=== PATIENT | female | born 1975 | race Caucasian/White ===

== ENCOUNTER 2019-10-06 16:54 | Emergency (ER) | payer OTHER, SELFPAY ==
[2019-10-06 17:04] VITALS: BP 151/93; PULSE 96; RESP 16; TEMP 37.3; O2SAT 99
--- NOTE | 2019-10-06 17:11 | ED.URI ---
HPI - URI/Sore Throat General Chief Complaint: Upper Respiratory Infection Stated Complaint: cold / flu symptoms Time Seen by Provider: 10/06/19 17:11 Source: patient and family History of Present Illness HPI Narrative: Patient presents with nasal congestion dry nonproductive cough and laryngitis that started 2 days ago. Patient has tried multiple [id number] medications with minimal relief in her symptoms. No shortness of breath no chest pain. Normally healthy individual. MD elicited complaint: cough, rhinorrhea and nasal congestion Related Data Home Medications Medication Instructions Recorded Confirmed cyclobenzaprine 20 mg PO HS 10/06/19 10/06/19 leflunomide 20 mg PO DAILY 10/06/19 10/06/19 secukinumab [Cosentyx] 150 mg SUBCUT ONCE 10/06/19 10/06/19 zonisamide 100 mg PO BID 10/06/19 10/06/19 Allergies Allergy/AdvReac Type Severity Reaction Status Date / Time infliximab [From Remicade] Allergy Intermediate Unknown Verified 10/06/19 17:28 codeine Allergy Unknown Difficulty Verified 10/06/19 17:26 Breathing levofloxacin Allergy Unknown Itching Verified 10/06/19 17:26 propoxyphene Allergy Unknown Unknown Verified 10/06/19 17:26 sulfasalazine Allergy Unknown Abdominal Verified 10/06/19 17:26 Pain tramadol Allergy Unknown Shakiness Verified 10/06/19 17:26 Review of Systems Review of Systems: Narrative: CONSTITUTIONAL: Denies fever, chills, or sweats. EYES: Denies visual changes, redness, or discharge. ENT: Denies rhinorrhea, congestion, sore throat, or otalgia. CARDIOVASCULAR: Denies chest pain, palpitations, or edema. RESPIRATORY: Denies cough or dyspnea. GASTROINTESTINAL: Denies abdominal pain, nausea, vomiting, or diarrhea. GENITOURINARY: Denies dysuria or hematuria. SKIN: Denies rash or itching. MUSCULOSKELETAL: Denies back pain, joint pain, or myalgia. NEUROLOGIC: Denies headache, numbness, or weakness. PSYCHIATRIC: Denies anxiety or depression. PMFSH Comments At time of signature, agree with nursing past medical, surgical, social and family history. There is no relevant family history pertinent to the presenting complaint Exam Narrative: Exam Narrative: The patient is a well-developed, well-nourished in no acute distress. SKIN: Skin is warm and dry without erythema, swelling or exudate. There is good turgor. No tenting. HEAD: Atraumatic. Normocephalic. No temporal or scalp tenderness. EYES: Moist and bright. Sclera and conjunctivae normal. No discharge. PERRLA. Extraocular motions intact. Gross visual acuity intact. EARS: Pinna is normal shape and contour. Clear external auditory canals. TM pearly bailey with good cone of light, no erythema or suppuration. Bilateral cerumen noted no gross hearing deficit. NOSE: pink, moist mucosa with good air movement. Clear rhinorrhea without nasal flaring. Septum midline. Mouth: moist mucous membranes. THROAT; mild erythema noted to posterior oropharynx with moderate postnasal drainage. Without exudate or ulceration.. Uvula midline. Normal movement of soft palate. NECK: Supple and nontender with full range of motion without discomfort. No meningeal signs. LUNGS: Equal and bilateral breath sounds without wheezes, rales or rhonchi. CHEST: The chest wall is without retractions or use of accessory muscles. HEART: Has a regular rate and rhythm without murmur, gallops, click or rub. ABDOMEN: Soft, nontender with positive active bowel sounds. No rebound tenderness. EXTREMITIES: Without cyanosis, clubbing or edema. Equal 2+ distal pulses and 2 second capillary refill noted. NEUROLOGIC: alert, active, . The patient moves all extremities with normal muscle strength. Normal muscle tone is noted. Normal coordination is noted. NO focal neurological findings noted. Course Vital Signs Vital signs: Vital Signs Temperature 37.3 C 10/06/19 17:04 Pulse Rate 96 10/06/19 17:04 Respiratory Rate 16 10/06/19 17:04 Blood Pressure 151/93 H 10/06/19 17:04 Pulse Oximetry 99
== END 2019-10-06 17:32 | disposition home or self-care (01) ==
PROVIDERS: Emergency Provider Nurse Practitioner Family; PCP Family Medicine
DX: B34.9 Viral infection, unspecified (principal); R09.82 Postnasal drip; J06.9 Acute upper respiratory infection, unspecified
CPT/HCPCS: 99203; G0463

== ENCOUNTER 2025-01-08 18:47 | Emergency (ER) | payer OTHER, SELFPAY ==
--- OUTSIDE RECORDS SUMMARY | 2025-01-08 18:49 | XMS_ITS | Clinical Summary ---
Author Organization [facility] Address [address] [place] [id number] Care Team Providers Care Insurance Broker Name Role Phone Unavailable Primary Care Provider Unavailabl e Social History Tobacco Use Types Packs/Day Years Used Date Smoking Tobacco: Never Assessed Comments Unknown Sex and Gender Information Value Date Recorded Sex Assigned at Not on file Legal Sex Female 8:34 PM CDT Gender Identity Not on file Sexual Orientation Not on file Plan of Treatment Health Maintenance Due Date Last Done Comments Cervical Cancer Screening Pa p Smear (Age 30 to 64) Every 3 Years 1973 Colorectal Cancer Screening Colonoscopy (10 Years) 1973 Annual Physical 1976 Hepatitis C 1991 DTaP, Tdap and Td Vaccines ( 1 - Tdap) 1992 Hepatitis B Vaccines (1 of 3 - 19+ 3-dose series) 1992 Cervical Cancer Screening Pa p with HPV Testing (Age 30 to 64) Every 5 Years 2003 Cervical Cancer Screening with HPV 2003 Mammogram Screening 2013 Pneumococcal Vaccine: 50+ Ye ars (1 of 1 - PCV) 2023 Zoster Vaccines (1 of 2) 2023 COVID-19 Vaccine ( - 2023-2 5 season) 2024 Meningococcal B Vaccine Aged Out No l onger eligible based on patient's age to complete this topic Meningococcal Vaccine Aged Out No angel sean eligible based on patient's age to complete this topic RSV Immunizations Under 20 Months Aged Out No longer eligible based on patient's age to complete this topic
--- OUTSIDE RECORDS SUMMARY | 2025-01-08 18:49 | XMS_ITS | Clinical Summary ---
Author Organization [facility] Address [address] [place] [address] Care Team Providers Care Director Of It Operations Name Role Phone Kwabena Nascimento MD Primary Care Provider [phone] Source Comments [facility],non-owned Affiliates and Associated Physician Practices is amultiple site organization consisting of ambulatory clinics and hospital sitesin [place], [place], [place] and [place]. This disclosure is being madepursuant to the Care Everywhere program and may not contain all information available regarding this patient. Last updated 18.[facility] Allergies Active Allergy Reactions Criticality Noted Date Comments Codeine Shortness of Breath High 10/27/2016 Levofloxacin Itching Low 10/27/2016 Propoxyphene Shortness of Breath High 10/27/2016 Sulfasalazine Shortness of Breath High 10/27/2016 Tramadol Other Low 10/27/2016 Pt states she gets tremors Medications * Be aware that medications may not be up to date on this document. Alwaysverify current medications with the patient. senna-docusate (SENOKOT-S) 8.6-50 MG tablet Take 1 tablet by mouth QDAY PRN (Constipati on). 30 tablet 0 10/29/2016 Active polyethylene glycol 3350 (MIRALAX) packet Take 17 g by mouth QDAY PRN (Constipati on). 30 packet 0 10/29/2016 Active zonisamide (ZONEGRAN) 100 MG capsule Take 100 mg by mouth DAILY. 10/27/2016 Active Biotin 1000 MCG Take by mouth. 10/27/2016 Active cyclobenzaprine (FLEXERIL) 5 MG tablet Take 10 mg by mouth 3X/day PRN. 10/27/2016 Active leflunomide (ARAVA) 20 MG tablet Take 20 mg by mouth DAILY. 10/27/2016 Active Apremilast (OTEZLA) 30 MG Take by mouth. 10/27/2016 Active Active Problems Problem Noted Date Diagnosed Date Calculus of kidney 10/29/2016 Abdominal pain 10/28/2016 Nausea 10/28/2016 Social History Tobacco Use Types Packs/Day Years Used Date Smoking Tobacco: Never Alcohol Use Standard Drinks/Week Comments No 0 (1 standard drink = 0.6 oz pur e alcohol) Comments Unknown Sex and Gender Information Value Date Recorded Sex Assigned at Not on file Legal Sex Female 5:40 PM [employer] Gender Identity Not on file Sexual Orientation Not on file Last Filed Vital Signs Vital Sign Reading Time Taken Comments Blood Pressure 138/90 12/10/2016 1:37 PM CDT Pulse 117 12/10/2016 1:37 PM CDT Temperature 36.8 C (98.2 F) 12/10/2016 1:37 PM CDT Respiratory Rate 18 10/29/2016 8:27 AM [employer]ESS [employer] Oxygen Saturation 100% 12/10/2016 1:37 PM CDT Inhaled Oxygen Concentration - - Weight 74.8 kg (165 lb) 12/10/2016 1:37 PM CDT Height 167.6 cm (5' 6 ) 12/10/2016 1:37 PM CDT Body Mass Index 26.63 12/10/2016 1:37 PM CDT Plan of Treatment Health Maintenance Due Date Last Done Comments COLOGUARD (AGES 45-75) - COL ON CA SCREENING 1973 COLON MONITORING 1973 COLONOSCOPY - COLON CA SCREENING 1973 CT COLONOGRAPHY - COLON CA SCREENING 1973 Colorectal Cancer Screening 1973 FIT - COLON CA SCREENING 1973 FLEX SIG - COLON CA SCREENING 1973 LIPID TESTING 1973 MAMMOGRAM 1973 HIV SCREENING 1988 HEPATITIS C SCREENING 03/16/1991 DTAP/TDAP/TD VACCINES (1 - Tdap) 1992 HEPATITIS B VACCINE (1 of 3 - 19+ 3-dose series) 1992 PNEUMOCOCCAL VACCINE 50+ (1 of 1 - PCV) 2023 ZOSTER VACCINE (1 of 2) 2023 COVID-19 VACCINE (1 - 2023-2 5 season) 2024 DEPRESSION SCREENING 08/30/2024 INFLUENZA VACCINE (Season Ended) 2025 HIB VACCINE Aged Out No longer eligi ble based on patient's age to complete this topic HPV VACCINE Aged Out No longer eligi ble based on patient's age to complete this topic MENINGOCOCCAL (Group B) VACC INE SHARED DECISION-MAKING Aged Out No longer eligibl e based on patient's age to complete this topic MENINGOCOCCAL GROUPS A/C/Y/W VACCINE Aged Out No longer eligible b ased on patient's age to complete this topic Care Teams Director Of It Operations Relationship Specialty Start Date End Date Kwabena Nascimento MD [address] [place] [address] PCP - General 10/27/16
[2025-01-08 18:54] VITALS: BP 143/85; PULSE 93; RESP 20; TEMP 36.8; O2SAT 100
--- NOTE | 2025-01-08 19:02 | ED_ITS ---
HPI - Skin/Abscess/Foreign Bdy General Chief complaint: Skin/Abscess/Foreign Body Stated complaint: poss allergic reaction Time Seen by Provider: 01/08/25 19:02 Source: patient, RN notes reviewed and old records reviewed Mode of arrival: ambulatory Limitations: no limitations History of Present Illness HPI narrative: 49 year old female who presents to [facility] care with complaints of working in the yard on Wednesday and having some reaction from bug bites and is itchy all over. Patient has red raised firm bites to back of both ears and on lobes. to left side of neck and on posterior neck and on right leg. Patient reports that she has been taking Benadryl for her symptoms without relief. MD complaint: rash and insect bite/sting Onset (ago): day(s) (day 3) Severity: moderate Quality: pruritic Treatments prior to arrival: Benadryl Related Data Home Medications ?Medication ?Instructions ?Recorded ?Confirmed ?Last Taken ?Type cyclobenzaprine 10 mg tablet 20 mg PO HS 10/06/19 10/06/19 Unknown History zonisamide 100 mg capsule 100 mg PO BID 10/06/19 10/06/19 Unknown History clobetasol topical 01/08/25 Unknown History Allergies Allergy/AdvReac Type Severity Reaction Status Date / Time infliximab (From Remicade) Allergy Intermediate Unknown Verified 01/08/25 19:01 codeine Allergy Unknown Difficulty Verified 01/08/25 19:01 Breathing levofloxacin Allergy Unknown Itching Verified 01/08/25 19:01 propoxyphene Allergy Unknown Unknown Verified 01/08/25 19:01 sulfasalazine Allergy Unknown Abdominal Verified 01/08/25 19:01 Pain tramadol Allergy Unknown Shakiness Verified 01/08/25 19:01 Review of Systems Review of Systems: CONSTITUTIONAL: Denies fever, chills, or sweats. CARDIOVASCULAR: Denies chest pain, palpitations, or edema. RESPIRATORY: Denies cough or dyspnea. SKIN: Reports areas of redness on skin from bug bites since working in yard on Wednesday Patient has red firm raised bites to bilateral ears and on ear lobes, left neck and back of neck and on righ lg MUSCULOSKELETAL: Denies joint pain or myalgia. NEUROLOGIC: Denies headache, numbness, or weakness. All systems reviewed & are unremarkable except as noted in HPI and below [facility] Past Medical History Medical History (Updated 01/09/25 @ 17:11 by Jami Neal NP) Psoriasis Osteoarthritis Psoriatic arthritis Hemiplegic migraine Cluster headaches Surgical History Surgical History (Updated 01/09/25 @ 17:03 by Jami Neal NP) History of endometrial ablation H/O umbilical hernia repair S/P medial meniscectomy of right knee History of tympanoplasty S/P arthroscopic partial medial meniscectomy of left knee Social History Social History (Updated 01/08/25 @ 19:16 by Jami Neal NP) Smoking status: Former smoker Alcohol intake: current Alcohol use details: rare Substance use type: does not use Gender identity (if verbalized by the patient): Female Comments At time of signature, agree with nursing past medical, surgical, social and family history. There is no relevant family history pertinent to the presenting complaint Exam Narrative: GENERAL: Well-appearing, well-nourished, and in no acute distress. HEAD: Normocephalic, atraumatic. EYES: PERRLA, conjunctivae clear, and EOMI. ENT: Mucous membranes moist. Oropharynx without edema, erythema or lesions. NECK: Supple. No lymphadenopathy red raised firm bug bite left side of neck and on posterior neck CHEST: Clear to auscultation. No respiratory distress. SAO2 100% on room air HEART: Regular rate and rhythm. raised firm bug bite to bilateral ars and on ear lobes and on right leg no pustular formation is itchy SKIN: Warm, dry.? NEURO:? Alert and oriented x3. PSYCH: Normal mood and affect Course Course Emergency Course: Patient is aware of diagnosis, understands and agrees to treatment plan.? Anticipatory guidance given.? Patient agrees to follow-up as directed and is aware of reasons to seek care at the emergency department. Portions of this record may have been created with voice recognition software Level of Care: Express Care Visit Vital Signs Vital signs: Vital Signs Temperature 36.8 C 01/08/25 18:54 Pulse Rate 93 01/08/25 18:54 Respiratory Rate 20 01/08/25 18:54 Blood Pressure 143/85 H 01/08/25 18:54 Pulse Oximetry 100 01/08/25 18:54 Oxygen Delivery Room Air 01/08/25 18:54 Temperature 36.8 C 01/08/25 18:54 Pulse Rate 93 01/08/25 18:54 Respiratory Rate 20 01/08/25 18:54 Blood Pressure 143/85 H 01/08/25 18:54 Pulse Oximetry 100 01/08/25 18:54 Oxygen Delivery Room Air 01/08/25 18:54 Reviewed MDM - Skin/Abscess/Foreign Bdy MDM Narrative Medical decision making narrative: Does not appear at this time to be erythema multiforme, bullous, SJS, TEN; no evidence at this time to suggest RMSF, endocarditis or Lyme disease; patient looks well, nontoxic and is tolerating oral intake; no neurologic signs or symptoms; no headache, photophobia or neck pain; afebrile; appropriate for initial outpatient treatment; discussed the importance of follow-up, patient agrees; question, viral exanthema, contact dermatitis, allergic dermatitis, eczema, urticaria, [ xx ]. No soft palate or uvula edema, no tongue, lip edema or other mucosal involvement, no respiratory compromise, no stridor, no wheezing, no wheezing, no history of syncope, no hypotension, no nausea, vomiting, or diarrhea.? Instructed patient to go to nearest ER immediately for any worsening symptoms including but not limited to: fever, spreading rash, pain, sore throat, headache, dizziness, chest pain, trouble breathing, or any symptoms concerning to the patient. Differential Diagnosis Differential diagnosis: Likely urticaria, cellulitis, insect bites and other (local skin reaction) Medical Records Attestation: I reviewed the patient's medical records. Critical Care Time Critical Care Time Critical Care Time: No Discharge Plan Discharge Clinical Impression: Contact dermatitis Qualifiers: Contact dermatitis type: allergic Contact dermatitis trigger: other trigger Qualified Code(s): L23.89 - Allergic contact dermatitis due to other agents Bug bites Qualifiers: Encounter type: initial encounter Qualified Code(s): W57.XXXA - Bitten or stung by nonvenomous insect and other nonvenomous arthropods, initial encounter Patient Disposition: Home Condition: Stable Instructions: Contact Dermatitis (ED), Insect Bite or Sting (ED) Additional Instructions: Apply triamcinolone ointment twice daily to bites never apply to face watch for any increasing infection--redness, swelling, drainage Tylenol or ibuprofen any fever pain follow up with PCP in 7-10 days for a wound check recheck if develop fever, chills, increasing symptom Go to the ER if your symptoms become worse of if ANY new symptoms develop Steroid taper take as prescribed Pepcid 20 mg daily for 10 days Zyrtec daily for 10 days If your symptoms persist, change or worsen significantly before you can contact your personal physician then please, without delay, go to the emergency department for further evaluation. Follow-up with PCP in 7-10 days or sooner if needed Follow up with PCP soon in regards to your blood pressure which is elevated above threshold for referral. Blood pressure above 120/80 may indicate pre- hypertension. 143/85 Patient Language: [place] Prescriptions: New triamcinolone acetonide 0.1 % ointment 1 applic topical DAILY Qty: 80 0RF Rx Instructions: never apply this to the face prednisone 10 mg tablet 10 mg PO DIRECTED Qty: 21 0RF Rx Instructions: see taper instructions 6 tabs day 1, 5 tabs day 2, 4 tabs day 3, 3 tabs day 4, 2 tabs day 5, 1 tab day famotidine [Pepcid] 20 mg tablet 20 mg PO DAILY Qty: 10 0RF No Action cyclobenzaprine 10 mg Tablet 20 mg PO HS zonisamide 100 mg Capsule 100 mg PO BID clobetasol topical Follow-up/Referrals: Harms,Kwabena Villalta M.D. [Primary Care Provider] - Time of Disposition: 19:22 Quality [place] Coma Scale Eyes: Open Verbal: Oriented and Alert Motor: Follows Commands [place] Coma Total Score: 15
== END 2025-01-08 19:27 | disposition home or self-care (01) ==
PROVIDERS: Emergency Provider Registered Nurse; PCP Family Medicine
DX: L23.89 Allergic contact dermatitis due to other agents (principal); S00.462A Insect bite (nonvenomous) of left ear, initial encounter; S00.461A Insect bite (nonvenomous) of right ear, initial encounter; S80.861A Insect bite (nonvenomous), right lower leg, initial encounter; S10.96XA Insect bite of unspecified part of neck, initial encounter; W57.XXXA Bitten or stung by nonvenomous insect and other nonvenomous arthropods, initial encounter; L40.9 Psoriasis, unspecified; M19.90 Unspecified osteoarthritis, unspecified site; L40.50 Arthropathic psoriasis, unspecified; Z87.891 Personal history of nicotine dependence
CPT/HCPCS: 99213; G0463